=== PATIENT | female | born 1945 | race Caucasian/White ===

== ENCOUNTER 2023-08-25 12:54 | Inpatient (IN) | payer OTHER, SELFPAY ==
[2023-08-24] VITALS (8 sets, daily range): BP systolic 131–150; BP diastolic 80–112; BMI 33.2; BMI 32.1
--- NOTE | 2023-08-24 10:51 | ED.GENMED ---
History of Present Illness
<Carolina Chen PA-C - Last Filed: 08/24/23 15:36>
General
Chief Complaint: Fall
Source: patient
Time Seen by Provider: 08/24/23 10:50
History of Present Illness
History of Present Illness:
77-year-old female with a past medical history of hypertension, hyperlipidemia, hypothyroidism presenting emergency department today with left groin pain following a fall that occurred this morning. Patient reports that she was walking to take her
trash out of her apartment and tossed the trash over the wall into the trash can when she lost her balance and fell forward. Patient reports that she was on the ground for 10 minutes when her friend walked by on the way to [facility] and saw her on the
ground and called EMS. Patient was able to roll but not able to get up on her own. Patient is unable to bear any weight. Patient reports that she feels like when she fell, 'the bones fell out of place'. She denies any head trauma, denies neck
pain, chest wall pain, abdominal pain, shoulder pain. Patient denies any dizziness, lightheadedness, palpitations, chest pain, shortness of breath preceding the fall. She takes 1 baby aspirin daily but does not take any anticoagulants.
Past History
<Carolina Chen PA-C - Last Filed: 08/24/23 15:36>
Past History
ED Past Medical History: Asthma, HTN, Hypercholesterolemia, Hypothyroidism and Other (Arthritis is)
ED Past Surgical History: Cholecystectomy, Gynecological and Orthopedic (Bilateral knee replacements)
Social History
Tobacco: Non-smoker
Alcohol: Occasional
Drug: None
Personal:
Living: alone
Employment: Employed
Review of Systems
<Carolina Chen PA-C - Last Filed: 08/24/23 15:36>
Review of Systems
All Other Systems: ROS reviewed and negative except as documented in HPI and ROS
Phy Exam
<Carolina Chen PA-C - Last Filed: 08/24/23 15:36>
Physical Exam
Physical Exam:
General: Patient is well appearing and in no acute distress
Skin: Warm and dry, no rashes or lesions, no areas of ecchymosis
Head: Normocephalic, atraumatic, no palpable hematomas
Cardiac: Regular rate and rhythm, no murmurs. No tenderness palpation of the external chest wall.
Peripheral vascular: Patient has 2+ dorsalis pedis and posterior tibial pulses bilaterally.
Pulm: Normal respiratory effort, no wheezes, rales, or rhonchi
Abdomen: No abdominal tenderness, no signs of trauma, no ecchymosis.
Musculoskeletal: Patient unable to bear weight. Patient has no obvious deformity of the lower extremities. Patient has no tenderness palpation of the hip joint. Patient has moderate pain in the groin with any so movements. Patient has full range
of motion of bilateral upper extremities with 5 out of 5 strength, no pain with range of motion.
Neuro: Patient is awake and alert x 3. Cranial nerves II through XII intact.
Course
<Carolina Chen PA-C - Last Filed: 08/24/23 15:36>
Orders/Labs/Results
Orders:
Orders
08/24/23 11:11
CR Hip - LT w/wo Pel 2-3 Vw* Urgent
Comment:
Reason For Exam: left hip pain following fall
Include a pelvis x-ray?: Yes
08/24/23 11:17
Acetaminophen [Tylenol] 650 mg PO NOW STA
08/24/23 12:24
IV Insert/Care/Rem.- Treatment PRN
08/24/23 13:12
Complete Blood Count/With Diff Urgent
Comprehensive Metabolic Panel Urgent
08/24/23 13:25
Ketorolac [Toradol] 15 mg IV NOW STA
08/24/23 14:04
Admit/Transfer Patient As Directed
Co-Sign Provider:
Level of Care: Observation services
Assign to:: Medical/Surgical
Physician / Group: Hospitalist
Diagnosis: Left pubic rami fracture
Reason for Hospitalization: Left pubic rami fracture w/ ambulatory dysfunction
08/24/23 14:06
Code Status As Directed
Resuscitation Status: Full Code
08/24/23 14:27
DNR Bracelet Application ONCE
08/24/23 Dinner
Regular
At Your Request: Full Participation
Abnormal Lab Results
08/24/23
13:12
MCH 32.3 H pg
(27.0-31.0)
Abs Immat Gran (auto) 0.1 H 10^3/uL
(0-0.05)
Absolute Neuts (auto) 8.6 H 10^3/uL
(1.4-6.5)
Absolute Lymphs (auto) 1.0 L 10^3/uL
(1.2-3.4)
Absolute Monos (auto) 0.8 H 10^3/uL
(0.1-0.6)
Immature Gran % 0.6 H %
(0-0.5)
Neutrophils % 81.1 H %
(42.2-75.2)
Lymphocytes % 9.6 L %
(20.5-51.1)
BUN 18 H mg/dl
(7-17)
Calcium 10.5 H mg/dl
(8.4-10.2)
08/24/23 13:12
08/24/23 13:12
Vital Signs
Initial and Last Documented VS:
Initial Vital Signs
BP
131/87
08/24/23 10:48
Last Documented Vital Signs
Temp Pulse Resp BP Pulse Ox
98.6 F 83 15 150/80 94
08/24/23 10:54 08/24/23 12:00 08/24/23 11:00 08/24/23 15:00 08/24/23 15:00
<Fahad Hutchinson MD - Last Filed: 08/24/23 13:13>
Orders/Labs/Results
Orders:
Orders
08/24/23 11:11
CR Hip - LT w/wo Pel 2-3 Vw* Urgent
Comment:
Reason For Exam: left hip pain following fall
Include a pelvis x-ray?: Yes
08/24/23 11:17
Acetaminophen [Tylenol] 650 mg PO NOW STA
08/24/23 12:24
IV Insert/Care/Rem.- Treatment PRN
08/24/23 13:12
Complete Blood Count/With Diff Urgent
Comprehensive Metabolic Panel Urgent
08/24/23 13:25
Ketorolac [Toradol] 15 mg IV NOW STA
08/24/23 14:04
Admit/Transfer Patient As Directed
Co-Sign Provider:
Level of Care: Observation services
Assign to:: Medical/Surgical
Physician / Group: Hospitalist
Diagnosis: Left pubic rami fracture
Reason for Hospitalization: Left pubic rami fracture w/ ambulatory dysfunction
08/24/23 14:06
Code Status As Directed
Resuscitation Status: Full Code
08/24/23 14:27
DNR Bracelet Application ONCE
08/24/23 Dinner
Regular
At Your Request: Full Participation
Abnormal Lab Results
08/24/23
13:12
MCH 32.3 H pg
(27.0-31.0)
Abs Immat Gran (auto) 0.1 H 10^3/uL
(0-0.05)
Absolute Neuts (auto) 8.6 H 10^3/uL
(1.4-6.5)
Absolute Lymphs (auto) 1.0 L 10^3/uL
(1.2-3.4)
Absolute Monos (auto) 0.8 H 10^3/uL
(0.1-0.6)
Immature Gran % 0.6 H %
(0-0.5)
Neutrophils % 81.1 H %
(42.2-75.2)
Lymphocytes % 9.6 L %
(20.5-51.1)
BUN 18 H mg/dl
(7-17)
Calcium 10.5 H mg/dl
(8.4-10.2)
08/24/23 13:12
08/24/23 13:12
Vital Signs
Initial and Last Documented VS:
Initial Vital Signs
BP
131/87
08/24/23 10:48
Last Documented Vital Signs
Temp Pulse Resp BP Pulse Ox
98.6 F 83 15 150/80 94
08/24/23 10:54 08/24/23 12:00 08/24/23 11:00 08/24/23 15:00 08/24/23 15:00
<Carolina Chen PA-C - Last Filed: 08/24/23 15:36>
MDM/Problems Addressed
Differential Diagnosis Includes:
Differentials include pelvic fracture, hip fracture, hip dislocation, musculoskeletal sprain/strain
MDM/Problems Addressed:
Left groin pain
Chronic conditions affecting care: HTN and Other (hyperlipidemia, hypothyroidism)
Acute Exacerbation and/or Progression of Chronic Illness: HTN
<Carolina Chen PA-C - Last Filed: 08/24/23 15:36>
*Radiology
Radiology exam reviewed: preliminary read by ED provider (left pubic ramus fracture)
*Pulse Oximetry
Patient hypoxic: no
*Critical Care Note
Total Time (30-74mins, 75-104mins- exclusive of procedures): Not Applicable
Data Reviewed
Review of Other/Old Records Reveals: Records (Reviewed documentation from 09/18/2021)
Source: patient
<Carolina Chen PA-C - Last Filed: 08/24/23 15:36>
Patient Management
Escalation/DeEscalation of care consider admission/obs:
77-year-old female presenting emergency department with left groin pain following a fall. Patient states that she fell while throwing a large garbage bag over a fence and lost her balance. She was found to have a left, slightly displaced, superior
pubic ramus fracture. Patient was alone at home, has significant pain, and cannot bear weight. Considering concerns for her safety at home and inability bear weight, we will admit her to the hospital for further observation, pain control, PT
evaluation, and Ortho evaluation. Patient accepted by hospitalist for admission.
<Carolina Chen PA-C - Last Filed: 08/24/23 15:36>
Update Note
Update Note:
12:30 pm--updated patient on x-ray results, patient deny any further pain control at this time
ED Attending Note
<Carolina Chen PA-C - Last Filed: 08/24/23 15:36>
-
Portions of this chart may have been created with voice recognition software.� Occasional wrong word or��sound alike� substitutions may have occurred due to the inherent limitations of voice recognition software.
<Fahad Hutchinson MD - Last Filed: 08/24/23 13:13>
ED Attending Note
Patient seen and examined by attending physician: Yes
ED Attending Note:
Patient presents to ED for evaluation secondary to trip and fall while taking out trash can this morning. Patient reports falling forward onto her stomach when she fell. Patient reporting left hip/groin pain, which prevented patient from being
able to stand up. Denies any other injuries from the fall. Denies headache. Denies neck pain. Denies loss of sensation or weakness. Denies back pain. Denies chest pain. Denies abdominal pain. Patient does not take any blood thinning
medications.
Physical Exam
General: mild painful distress, not acutely ill. afebrile
Head: nc/at. eomi
Neck: supple. no meningeal signs.
Abdomen: normal bowel sounds. not tender.
Neuro: alert and oriented. no focal neurological deficits
Skin: no rash
Psychiatric: well kept. interactive and cooperative
Extremities: no edema. no calf tenderness.
History, exam, and x-ray consistent with pelvic fracture. Patient with continued pain despite pain medication, and unable to weight-bear due to pain. As such, patient will be admitted for further evaluation and treatment, including pain
management, PT/OT evaluation, and potential orthopedic consultation as an inpatient.
Discharge Plan
Departure
Patient Disposition: Admit
Date of Disposition: 08/24/23
Time of Disposition: 13:06
Presentation/result/management discussed w/ accepting MD/DO: Hospitalist
Patient with high blood pressure during this ER visit?: Yes
Condition: Fair
Discharge Problem:
Closed fracture of left superior pubic ramus
Interventions
Interventions:
*Risk Screen - Suicide Last Done: 08/24/23 10:57
*General Assessment Last Done: 08/24/23 10:54
*Neglect/Abuse Screening Last Done: 08/24/23 10:57
*ED COVID-19 Vaccine History Last Done: 08/24/23 10:54
ED-Musculoskeletal Assessment Last Done: 08/24/23 10:55
ED- Neurological Assessment Last Done: 08/24/23 10:55
ED-Skin Assessment Last Done: 08/24/23 10:56
[2023-08-24] MEDS: TYLENOL 650 MG PO ×3 (11:27→23:52)
[2023-08-24 13:18] LABS: % Basophils 0.5 % (0-2); % Immature Granulocytes 0.6 % (0-0.5); % Lymphocytes 9.6 % (20.5-51.1); % Monocytes 7.2 % (1.7-9.3); % Neutrophils 81.1 % (42.2-75.2); Absolute Basophils 0.1 10^3/uL (0-0.2); Absolute Eosinophils 0.1 10^3/uL (0-0.7); Absolute Immature Granulocytes 0.1 10^3/uL (0-0.05); Absolute Monocytes 0.8 10^3/uL (0.1-0.6); Absolute Neutrophils 8.6 10^3/uL (1.4-6.5); Hematocrit 40.1 % (37.0-47.0); Hemoglobin 13.9 g/dL (12.0-16.0); Mean Corp Hgb Conc. 34.7 g/dL (33.0-37.0); Mean Corpuscular Hgb 32.3 pg (27.0-31.0); Mean Corpuscular Volume 93.3 fL (81.0-99.0); Mean Platelet Volume 9.5 fL (7.4-10.4); Nucleated Red Blood Cells % 0 %; Platelet Count 221 10^3/uL (130-400); Red Cell Dist. Width 13.4 % (11.5-14.5); White Blood Cell Count 10.6 10^3/uL (4.8-10.8)
[2023-08-24 13:31] LABS: ALT (SGPT) 21 U/L (0-35); AST (SGOT) 24 U/L (14-36); Albumin 4.6 g/dl (3.5-5.0); Alkaline Phosphatase 58 U/L (38-126); Blood Urea Nitrogen 18 mg/dl (7-17); Calcium 10.5 mg/dl (8.4-10.2); Carbon Dioxide 26 mmol/L (22-30); Chloride 105 mmol/L (98-107); Estimated Creatinine Clearance 56 ml/min; Glucose 98 mg/dl (70-99); Potassium 3.9 mmol/L (3.5-5.1); Sodium 137 mmol/L (135-145); Total Bilirubin 0.7 mg/dl (0.2-1.3); Total Protein 6.7 g/dl (6.3-8.2); eGFR > 60.00
[2023-08-24] MEDS: TORADOL 15 MG IV (13:38)
--- NOTE | 2023-08-24 14:28 | HPS.HSE ---
Family Physician
-
Family Physician: Kaylie Boudreaux
Chief Complaint
-
Fall
History of Present Illness
This is a 77-year-old female with past medical history significant for hypothyroidism, hypertension, hyperlipidemia, obesity and osteopenia presenting to the emergency department following a mechanical fall at her apartment.
Patient remember the episode fully. There was no loss of consciousness. There was no seizure-like activity. She denied feeling lightheaded prior to the episode. Patient recalls a mechanical fall where she fell as she was turning around left leg
hide will skidded on the floor and then she fell on ventral surface landing on her stomach. She denied hitting her head. She tries to roll around to her back she noted significant pain on the left side. A bystander that was quickly side and EMS
was called. Patient report being able to see her up. However when she tried to move her legs she felt the discomfort in the left hip. She denied prior mechanical falls. She is not on any blood thinners. She does take 80 mg of aspirin daily.
She had recent cardiac testing including stress testing which was negative.
In emergency department the patient was afebrile, hemodynamically stable and in no acute distress. Labs unremarkable. X-ray of the hip shows a left superior ramus minimally displaced fracture as well as a left inferior ramus nondisplaced fracture.
Medical History
Past Medical History
Past Medical History: Reports HTN, Hypercholesterolemia and Hypothyroidism
Additional Past Medical History:
osteoporosis
osteoarthritis of the cervical, lumbar spine
Past Surgical History: Reports Orthopedic
Social History
Tobacco: Non-smoker
Alcohol: None
Drug: None
Personal: Single
Living: Alone
Employment: Retired
Family History
Family History: Not pertinent
Allergies / Home Medications
Allergies reflects when Allergies were last updated in [employer].
Home Medications with original date entered in [employer]
Allergy/Medication List:
Allergies
Allergy/AdvReac Type Severity Reaction Status Date / Time
morphine Allergy 'severe Verified 10/10/21 13:09
nausea and
constipation'
Home Medications
levothyroxine 75 mcg tablet 75 mcg PO MOTUWETHFRSA 01/16/16
carvedilol 6.25 mg tablet 6.25 mg PO BID 09/21/21
pravastatin 40 mg tablet 80 mg PO DAILY 09/21/21
acetaminophen 325 mg tablet 650 mg PO Q4HPRN PRN mild pain #30 tabs 09/26/21
ferrous sulfate 325 mg (65 mg iron) tablet,delayed release 325 mg PO DAILY ##30 09/26/21
aspirin 81 mg tablet,delayed release 81 mg PO DAILY 08/24/23
cetirizine 10 mg tablet (Zyrtec) 10 mg PO HS 08/24/23
denosumab 60 mg/mL subcutaneous syringe (Prolia) 60 mg SC [id number] 08/24/23
duloxetine 30 mg capsule,delayed release (Cymbalta) 30 mg PO DAILY 08/24/23
meloxicam 15 mg tablet 15 mg PO DAILY 08/24/23
nifedipine 30 mg tablet,extended release 30 mg PO DAILY 08/24/23
Review of Systems
-
History Source: Patient
Constitutional: Reports No Symptoms
EENT: Reports No Symptoms
Respiratory: Reports No Symptoms
Cardiac: Reports No Symptoms
Abdomen/GI: Reports No Symptoms
: Reports No Symptoms
Musculoskeletal: Reports Joint Pain
Skin: Reports No Symptoms
Neurological: Reports No Symptoms
Endocrine: Reports No Symptoms
Hematologic/Lymphatic: Reports No Symptoms
Psych: Reports No Symptoms
Physical Exam
Vital Signs
Vital Signs
Temp Pulse Resp BP Pulse Ox
98.6 F 83 15 135/93 96
08/24/23 10:54 08/24/23 12:00 08/24/23 11:00 08/24/23 12:00 08/24/23 13:30
Physical Exam
General: Well Developed, Well Nourished, No Apparent Distress and Obese
HEENT: NormoCephalic, Anicteric, Moist mucous membranes, Atraumatic, PERRLA and [place] Conjunctivae
Respiratory: Clear
Cardiac: S1/S2 and Regular Rhythm
Breast: Deferred by me
GI: Soft, Non Tender, Non Distended and Normal Bowel Sounds
Rectal: Deferred by Provider
Genito-urinary: Deferred by me
Musculoskeletal: No Clubbing, No Cyanosis, No Edema and Other (normal pedal pulses bilaterally. No limb length asymmetry. No hip swelling, erythema. Mild tenderness to palpation. Pain with hip flexion/adduction)
Skin: Warm
Neuro: AO x 3, No Motor Deficits, Cranial Nerves Intact and No Sensory Deficits
Hematologic/Lymphatic: No Lymphadenopathy
Psych: Calm
Laboratory Results
-
08/24/23 13:12
08/24/23 13:12
Laboratory Results
Total Bilirubin 0.7 mg/dl (0.2-1.3) 08/24/23 13:12
AST 24 U/L (14-36) 08/24/23 13:12
ALT 21 U/L (0-35) 08/24/23 13:12
Alkaline Phosphatase 58 U/L (38-126) 08/24/23 13:12
Data Reviewed
-
Diagnostic Radiology: Image Personally Visualized and interpreted and Report Reviewed by me
Lab Data: Labs Reviewed by me
Old Records: Reviewed
Impression/Plan
-
IMPRESSION:
77 y.o with OA, osteopenia, HTN, HLD and hypothyroidism presents to ED following mechanical fall with left hip pain and found to have left sided superior & inferior rami fractures.
PLAN:
1. Hip Fracture - Traumatic/fragility hip fracture in patient with osteopenia. Type I fracture. No indication for immediate surgery. Patient is hemodynamically stable and in no extremum.
- admit to observation on general med/surg
- d/w ortho, likely no surgery indicated, ok for weight-bearing, ortho to see in am
- pain control with iv toradol prn, oral acetaminophen RTC and tramadol prn (tolerated this in the past)
- DVT PPX with lovenox sq
- continue duloxetine
- PT evaluation, possible STR
2. HTN - stable
- continue nifedipine and carvedilol.
3. Hypothyroid -
- continue levothyroxin 75mg daily
Code Status: DNR.
[2023-08-24] MEDS: TYLENOL PO (16:59)
[2023-08-24] MEDS: LOVENOX 40 MG SC (17:38)
--- NOTE | 2023-08-24 19:32 | CON.ORTHO ---
Consultation
-
Date/Time Consultation Requested: 08/24/2023 @ 16:25
Date/Time Consultation Performed: 08/24/2023 @ 19:00
Requesting Provider: Asim Vargas MD
Performing Provider: Antonio Hernandez PA-C for Dr. Mauro Sánchez
Reason for Consultation: Left Superior and Inferior Pubic Rami Fractures
Consultation - Orthopedics
History
HPI: The patient is a 77-year-old female with a past medical history significant for Hypertension, Hyperlipidemia, Hypothyroidism, and Osteopenia who presented to [facility] Emergency Department after sustaining a mechanical fall this
morning around 10 AM, 08/24/2023.� Patient reports that she was walking to take her trash out of her apartment and tossed the trash over the wall into the trash can, when she unfortunately lost her balance and fell forward to her stomach.� Patient
reports that she was lying on the ground for about 10 minutes when her friend walked by, saw her on the ground, and immediately called EMS.� Patient reports that she was unable to get off the ground under her own power.� She reports that she was
unable to bear any weight.� Patient reports pain at the left hip/groin region.� She denies any pain elsewhere.� Pain is reported a 1 out of 10 at rest lying in bed. She reports increased pain with rolling from side and with weightbearing activities.
Currently, her symptoms are well controlled with with IV Toradol as needed, oral Acetaminophen ATC, and Tramadol PRN. She denies any numbness or tingling in her left lower extremity.� The patient lives alone in an apartment. At baseline, the patient
is fully ambulatory without assistance.� Patient denies any head trauma or loss of consciousness.� She denies any neck pain, chest pain, abdominal pain, or shoulder pain. She denies any dizziness or lightheadedness.� Plain radiographs of the left
hip were obtained in the ED, revealing fractures of the left superior and inferior pubic rami.� Patient takes a baby Aspirin daily but denies any further anticoagulant use.� Due to x-ray findings, and degree of ambulatory dysfunction secondary to
injury, patient has been admitted for further evaluation.� Orthopedic surgery was consulted regarding treatment recommendations.
Past Medical History: Asthma, Hypertension, Hypercholesterolemia, Hypothyroidism, Obesity, Osteopenia, and Osteoarthritis.
Past Surgical History: Cholecystectomy, Gynecological, Bilateral total knee replacements (R TKA [address] Rashid; L TKA 2004 in [place]), Right reverse total shoulder arthroplasty for fracture ([address] Prado).
Family History: Non-contributory.
Social History: Denies tobacco, alcohol, and recreational drug use.� Patient lives alone in an apartment ([facility]).� She is fully ambulatory at baseline.
Review of Systems: 12-point review of systems obtained and negative except those mentioned in the HPI.
Allergies / Home Medications
Allergy/AdvReac Type Severity Reaction Status Date / Time
morphine Allergy 'severe Verified 10/10/21 13:09
nausea and
constipation'
Medication Instructions Recorded
levothyroxine 75 mcg tablet 75 mcg PO MOTUWETHFRSA 01/16/16
carvedilol 6.25 mg tablet 6.25 mg PO BID 09/21/21
pravastatin 40 mg tablet 80 mg PO DAILY 09/21/21
acetaminophen 325 mg tablet 650 mg PO Q4HPRN PRN mild pain #30 09/26/21
tabs
ferrous sulfate 325 mg (65 mg 325 mg PO DAILY ##30 09/26/21
iron) tablet,delayed release
aspirin 81 mg tablet,delayed 81 mg PO DAILY 08/24/23
release
cetirizine 10 mg tablet (Zyrtec) 10 mg PO HS 08/24/23
denosumab 60 mg/mL subcutaneous 60 mg SC [id number] 08/24/23
syringe (Prolia)
duloxetine 30 mg capsule,delayed 30 mg PO DAILY 08/24/23
release (Cymbalta)
meloxicam 15 mg tablet 15 mg PO DAILY 08/24/23
nifedipine 30 mg tablet,extended 30 mg PO DAILY 08/24/23
release
Vital Signs / Lab Results
Temp Pulse Resp BP Pulse Ox
98 F 93 18 150/98 96
08/24/23 16:29 08/24/23 16:29 08/24/23 16:29 08/24/23 16:29 08/24/23 16:29
08/24/23 13:12
08/24/23 13:12
Radiographic Findings:
Plain radiographs of the left hip (2 views), including AP pelvis view, was obtained at [facility] on 08/24/2023 and was made available for my review today.� Findings: There is a slightly displaced overriding fracture of the left superior
pubic ramus.� There is also a fracture of the left inferior pubic ramus, without significant displacement.� No other fractures are identified.� Mild degenerative change of both hip joints, symmetric.� Changes of degenerative disc disease in the
visualized mid to lower lumbar spine.� Impression: Fractures of the left superior and inferior pubic rami.
Physical Examination:
General: Well-developed, well-nourished, in no acute distress.
HEENT: NCAT.� Sclera anicteric.� Normal conversational hearing.
Heart: No JVD.� No lower extremity edema.
Lungs: Nonlabored breathing on room air.
MSK: Focused examination of the left lower extremity does not reveal any obvious deformity. No significant tenderness to palpation over the lateral aspect of her left hip and greater trochanter.� No erythema, warmth, or significant ecchymosis to
this point.� Pain reproduced to the left groin region with internal rotation to 20 degrees, external rotation to 20 degrees, hip flexion to 90 degrees, and hip abduction to 30 degrees.� No significant pain with logroll maneuver.� Patient has
painless range of motion of her left knee, foot, and ankle.� She can perform active dorsiflexion and plantarflexion.� She can wiggle all toes.� Calf is soft and nontender to palpation.� Sensation is intact to light touch.� Patient is neurovascularly
intact distally.
Assessment / Plan
Assessment: 77-year-old female with a minimally displaced fracture of the left superior pubic ramus, as well as a nondisplaced fracture of the left inferior pubic ramus.
Plan:
- Radiographs discussed with Dr. Sánchez.� These fractures are amenable to nonoperative treatment.� Patient may be weightbearing as tolerated to the left lower extremity with use of an assistive device to offload the affected extremity.
- PT/OT.
- Pain control per primary team.� Ice therapy for symptom management.
- Orthopedic surgery will sign off at this time.� Please reengage with any further questions or concerns.� Recommend outpatient follow-up appointment in 4 weeks for radiographic and clinical evaluation.
[2023-08-24] MEDS: SENOKOT PO (20:49)
[2023-08-24] MEDS: COLACE PO (20:49)
[2023-08-24] MEDS: COREG 6.25 MG PO (20:49)
[2023-08-24] MEDS: ZYRTEC 10 MG PO (20:50)
[2023-08-25] MEDS: TYLENOL 650 MG PO ×4 (04:17→15:21)
[2023-08-25] MEDS: SYNTHROID 75 MCG PO (06:24)
[2023-08-25 07:30] VITALS: BP 132/95
[2023-08-25] MEDS: PROCARDIA XL (EXTENDED RELEASE) 30 MG PO (09:17)
[2023-08-25] MEDS: ASPIR LOW (ENTERIC COATED) 81 MG PO (09:17)
[2023-08-25] MEDS: PRAVACHOL 80 MG PO (09:17)
[2023-08-25] MEDS: CYMBALTA DELAYED RELEASE 30 MG PO (09:17)
[2023-08-25] MEDS: COREG 6.25 MG PO ×2 (09:18→19:49)
[2023-08-25] MEDS: FEOSOL 325 MG PO (09:18)
[2023-08-25 09:20] VITALS: BP 152/98; PULSE 94; O2SAT 96
[2023-08-25] MEDS: COLACE PO ×2 (09:23→19:52)
[2023-08-25] MEDS: SENOKOT PO ×2 (09:23→19:52)
--- NOTE | 2023-08-25 12:46 | W.PN.HOSP.TC ---
Today's Communication/Plan
-
see A/P
Assessment / Plan
Assessment / Plan
77-year-old female with past medical history significant for hypothyroidism, hypertension, hyperlipidemia, obesity and osteopenia; presented to the emergency department following a mechanical fall at her apartment.
Patient remembers the episode fully.� There was no loss of consciousness.� There was no seizure-like activity.� She denied feeling lightheaded prior to the episode.�Patient recalled a mechanical fall where she fell as she was turning around and left
leg skidded on the floor and then she fell on ventral surface landing on her stomach.�She denied hitting her head.� She tried to roll around to her back and she noted significant pain on the left side.�A bystander called EMS.
When she tried to move her legs she felt the discomfort in the left hip.� She denied prior mechanical falls.� She is not on any blood thinners.� She does take 80 mg of aspirin daily.� She had recent cardiac testing including stress testing which was
negative.
In emergency department the patient was afebrile, hemodynamically stable and in no acute distress.� Labs unremarkable.� X-ray of the hip shows a left superior ramus minimally displaced fracture as well as a left inferior ramus nondisplaced fracture.�
A/P:
# Mechanical fall with left hip pelvis fracture
XR noted fractures of the left superior and inferior pubic rami.
Fracture likely related to underlying osteopenia given age
Appreciate ortho input, recc nonoperative treatment.�Patient may be weightbearing as tolerated to the left lower extremity with use of an assistive device to offload the affected extremity.
PT/OT recc SNF
Pain control with oral acetaminophen ATC , Toradol prn, tramadol prn (tolerated this in the past), add Lidocaine patch
Outpatient follow-up with ortho in 4 weeks for radiographic and clinical evaluation.
DVT PPX with lovenox sq
continue duloxetine
# Essential HTN - stable
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
# Hypothyroidism
continue levothyroxine 75mg daily
Code Status:� DNR
DVT ppx: Lovenox SQ
Anticipated Discharge: 24 - 48 hours
Subjective/Interval History
-
Date of Service: August 25, 2023
Objective Data
-
Vital Signs:
Vital Signs
Temp Pulse Resp BP Pulse Ox
36.8 C 83 18 132/95 96
08/25/23 07:30 08/25/23 09:17 08/25/23 07:30 08/25/23 09:17 08/25/23 07:30
I&O
08/24/23 08/25/23 08/26/23
06:59 06:59 06:59
Intake Total 480 / 480
Output Total 550 / 550
Balance -70 / -70
Review of Systems
-
Musculoskeletal: Reports Joint Pain (L hip area)
Physical Exam
-
General: Well Developed, Well Nourished, No Apparent Distress, Comfortable and Conversant; Negative Respiratory Distress
HEENT: Normocephalic, Atraumatic, Nose Appears Normal and Ears Appear Normal; Negative Oxygen
Respiratory: Clear to Auscultation and Non Labored Respirations; Negative Accessory Resp Muscle Use
Cardiac: Regular Rhythm and S1/S2
GI: Soft, Nontender, Nondistended and Normal Bowel Sounds
Skin: Warm and Dry
Neuro: Awake, Alert, Oriented and AO x 3
Psych: Calm and Intact Judgement/Insight
Data Reviewed
-
Diagnostic Radiology: Report Reviewed by me
Labs: Labs Reviewed by me
[2023-08-25] MEDS: LIDOCAINE 4% PATCH 1 PATCH TOPICAL (14:14)
[2023-08-25 15:21] VITALS: BP 118/67
--- NOTE | 2023-08-25 17:04 | CM ---
Received notification from attending that patient wants rehab and is selecting [facility]. Will do assessment and obtain information, will make referral.
Plan: Case management will continue to follow and assist with discharge planning. Will need to make SNF referrals.
[2023-08-25] MEDS: LOVENOX 40 MG SC (17:07)
[2023-08-25] MEDS: TYLENOL PO (19:53)
[2023-08-25] MEDS: ZYRTEC 10 MG PO (21:01)
[2023-08-25 23:19] VITALS: BP 139/88
[2023-08-26] MEDS: TYLENOL PO (03:28)
[2023-08-26] MEDS: TYLENOL 650 MG PO ×6 (04:45→23:00)
[2023-08-26] MEDS: SYNTHROID 75 MCG PO (04:46)
[2023-08-26 07:00] VITALS: BP 143/97
[2023-08-26 07:07] LABS: Hematocrit 34.9 % (37.0-47.0); Hemoglobin 12.2 g/dL (12.0-16.0); Mean Corpuscular Volume 94.3 fL (81.0-99.0); Mean Platelet Volume 9.9 fL (7.4-10.4); Platelet Count 180 10^3/uL (130-400); Red Cell Dist. Width 13.4 % (11.5-14.5); White Blood Cell Count 8.1 10^3/uL (4.8-10.8)
[2023-08-26 07:31] LABS: Blood Urea Nitrogen 19 mg/dl (7-17); Calcium 9.3 mg/dl (8.4-10.2); Carbon Dioxide 25 mmol/L (22-30); Chloride 104 mmol/L (98-107); Estimated Creatinine Clearance 62 ml/min; Glucose 111 mg/dl (70-99); Magnesium 2.1 mg/dl (1.6-2.3); Potassium 3.8 mmol/L (3.5-5.1); Sodium 135 mmol/L (135-145); eGFR > 60.00
[2023-08-26] MEDS: CYMBALTA DELAYED RELEASE 30 MG PO (09:05)
[2023-08-26] MEDS: PROCARDIA XL (EXTENDED RELEASE) 30 MG PO (09:06)
[2023-08-26] MEDS: ASPIR LOW (ENTERIC COATED) 81 MG PO (09:06)
[2023-08-26] MEDS: PRAVACHOL 80 MG PO (09:06)
[2023-08-26] MEDS: COLACE 100 MG PO (09:06)
[2023-08-26] MEDS: FEOSOL 325 MG PO (09:06)
[2023-08-26] MEDS: SENOKOT 17.1999999999999993 MG PO (09:06)
[2023-08-26] MEDS: COREG 6.25 MG PO ×2 (09:07→19:54)
[2023-08-26] MEDS: LIDOCAINE 4% PATCH TOPICAL (09:08)
[2023-08-26] MEDS: ULTRAM 50 MG PO (09:11)
[2023-08-26 10:40] VITALS: BP 119/66; BP 127/73; PULSE 95
[2023-08-26 10:48] VITALS: BP 119/66; BP 127/73; PULSE 95
--- NOTE | 2023-08-26 11:34 | W.PN.HOSP.TC ---
Today's Communication/Plan
-
see A/P
Assessment / Plan
Assessment / Plan
77-year-old female with past medical history significant for hypothyroidism, hypertension, hyperlipidemia, obesity and osteopenia; presented to the emergency department following a mechanical fall at her apartment.
Patient remembers the episode fully.� There was no loss of consciousness.� There was no seizure-like activity.� She denied feeling lightheaded prior to the episode.�Patient recalled a mechanical fall where she fell as she was turning around and left
leg skidded on the floor and then she fell on ventral surface landing on her stomach.�She denied hitting her head.� She tried to roll around to her back and she noted significant pain on the left side.�A bystander called EMS.
When she tried to move her legs she felt the discomfort in the left hip.� She denied prior mechanical falls.� She is not on any blood thinners.� She does take 80 mg of aspirin daily.� She had recent cardiac testing including stress testing which was
negative.
In emergency department the patient was afebrile, hemodynamically stable and in no acute distress.� Labs unremarkable.� X-ray of the hip shows a left superior ramus minimally displaced fracture as well as a left inferior ramus nondisplaced fracture.�
A/P:
# Mechanical fall with left hip pelvis fracture
XR noted fractures of the left superior and inferior pubic rami.
Fracture likely related to underlying osteopenia given age
Appreciate ortho input, recc nonoperative treatment.�Patient may be weightbearing as tolerated to the left lower extremity with use of an assistive device to offload the affected extremity.
PT/OT recc SNF
Pain control with oral acetaminophen ATC , Toradol prn, tramadol prn (tolerated this in the past), add Lidocaine patch
Outpatient follow-up with ortho in 4 weeks for radiographic and clinical evaluation.
DVT PPX with Lovenox sq
continue duloxetine
# Essential HTN - stable
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
# Hypothyroidism
continue levothyroxine 75mg daily
Code Status:� DNR
DVT ppx: Lovenox SQ
DW CM, awaiting auth and SNF
Anticipated Discharge: Within 24 hours
Subjective/Interval History
-
Date of Service: August 26, 2023
Objective Data
-
Labs:
Laboratory Results
08/26/23
06:56
WBC 8.1
Hgb 12.2
Hct 34.9 L
Plt Count 180
Sodium 135
Potassium 3.8
Chloride 104
Carbon Dioxide 25
BUN 19 H
Creatinine 0.8
Glucose 111 H
Calcium 9.3
Vital Signs:
Vital Signs
Temp Pulse Resp BP Pulse Ox
36.6 C 94 18 143/97 95
08/26/23 07:00 08/26/23 07:00 08/26/23 07:00 08/26/23 09:07 08/26/23 07:00
I&O
08/25/23 08/26/23 08/27/23
06:59 06:59 06:59
Intake Total 1560 / 1560
Output Total 1350 / 1350
Balance 210 / 210
Review of Systems
-
Musculoskeletal: Reports Joint Pain (L hip area pain has improved )
Physical Exam
-
General: Well Developed, Well Nourished, No Apparent Distress, Comfortable and Conversant; Negative Respiratory Distress
HEENT: Normocephalic, Atraumatic, Nose Appears Normal and Ears Appear Normal; Negative Oxygen
Respiratory: Clear to Auscultation and Non Labored Respirations; Negative Accessory Resp Muscle Use
Cardiac: Regular Rhythm and S1/S2
GI: Soft, Nontender, Nondistended and Normal Bowel Sounds
Skin: Warm and Dry
Neuro: Awake, Alert, Oriented and AO x 3
Psych: Calm and Intact Judgement/Insight
Data Reviewed
-
Diagnostic Radiology: Report Reviewed by me
Labs: Labs Reviewed by me
[2023-08-26 15:00] VITALS: BP 111/82
--- NOTE | 2023-08-26 16:41 | CM ---
Alert awake oriented patient who lives at [facility] she has an elevator to her apartment.She is independent in driving and in all activities of daily living.As per PT OT eval =SNF. She requested referral to [facility]. Referral
placed . Will need auth .
[facility] HX /No SNF hx
Pharmacy [facility]
PCP Dr Boudreaux
PLAN Probable SNF after auth
[2023-08-26] MEDS: LOVENOX 40 MG SC (17:13)
[2023-08-26] MEDS: COLACE PO (19:54)
[2023-08-26] MEDS: SENOKOT PO (19:54)
[2023-08-26] MEDS: ZYRTEC 10 MG PO (19:54)
[2023-08-26 23:28] VITALS: BP 116/75
[2023-08-27] MEDS: TYLENOL PO (04:05)
[2023-08-27] MEDS: SYNTHROID 75 MCG PO (05:15)
[2023-08-27 07:15] VITALS: BP 147/83
[2023-08-27] MEDS: COREG 6.25 MG PO (09:16)
[2023-08-27] MEDS: COLACE PO (09:17)
[2023-08-27] MEDS: TYLENOL 650 MG PO ×3 (09:17→15:57)
[2023-08-27] MEDS: PRAVACHOL 80 MG PO (09:17)
[2023-08-27] MEDS: FEOSOL 325 MG PO (09:17)
[2023-08-27] MEDS: PROCARDIA XL (EXTENDED RELEASE) 30 MG PO (09:17)
[2023-08-27] MEDS: ASPIR LOW (ENTERIC COATED) 81 MG PO (09:17)
[2023-08-27] MEDS: CYMBALTA DELAYED RELEASE 30 MG PO (09:17)
[2023-08-27] MEDS: LIDOCAINE 4% PATCH TOPICAL (09:17)
[2023-08-27] MEDS: SENOKOT PO (09:18)
--- NOTE | 2023-08-27 11:21 | W.PN.HOSP.TC ---
Addendum entered and electronically signed by Ni Muir MD 08/27/23 15:27:
# Likely underlying Osteoporosis given patient is receiving Prolia outpatient
Addendum entered and electronically signed by Ni Muir MD 08/27/23 13:09:
total DC time 35 min
Original Note:
Today's Communication/Plan
-
for SNF today
Assessment / Plan
Assessment / Plan
77-year-old female with past medical history significant for hypothyroidism, hypertension, hyperlipidemia, obesity and osteopenia; presented to the emergency department following a mechanical fall at her apartment.
Patient remembers the episode fully.� There was no loss of consciousness.� There was no seizure-like activity.� She denied feeling lightheaded prior to the episode.�Patient recalled a mechanical fall where she fell as she was turning around and left
leg skidded on the floor and then she fell on ventral surface landing on her stomach.�She denied hitting her head.� She tried to roll around to her back and she noted significant pain on the left side.�A bystander called EMS.
When she tried to move her legs she felt the discomfort in the left hip.� She denied prior mechanical falls.� She is not on any blood thinners.� She does take 80 mg of aspirin daily.� She had recent cardiac testing including stress testing which was
negative.
In emergency department the patient was afebrile, hemodynamically stable and in no acute distress.� Labs unremarkable.� X-ray of the hip shows a left superior ramus minimally displaced fracture as well as a left inferior ramus nondisplaced fracture.�
A/P:
# Mechanical fall with left hip pelvis fracture
XR noted fractures of the left superior and inferior pubic rami.
Fracture likely related to underlying osteopenia given age
Appreciate ortho input, recc nonoperative treatment.�Patient may be weightbearing as tolerated to the left lower extremity with use of an assistive device to offload the affected extremity.
PT/OT recc SNF
Pain control with oral acetaminophen ATC , Toradol prn, tramadol prn (tolerated this in the past), added Lidocaine patch
Outpatient follow-up with ortho in 4 weeks for radiographic and clinical evaluation.
DVT PPX with Lovenox sq
continue duloxetine
# Essential HTN - stable
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
# Hypothyroidism
continue levothyroxine 75mg daily
Code Status:� DNR
DVT ppx: Lovenox SQ
DW CM
Anticipated Discharge: Today
Subjective/Interval History
-
Date of Service: August 27, 2023
Objective Data
-
Vital Signs:
Vital Signs
Temp Pulse Resp BP Pulse Ox
36.9 C 85 18 147/83 93
08/27/23 07:15 08/27/23 09:16 08/27/23 07:15 08/27/23 09:16 08/27/23 10:45
I&O
08/26/23 08/27/23 08/28/23
06:59 06:59 06:59
Intake Total 1560 / 1560 1620 / 1620
Output Total 1350 / 1350 550 / 550
Balance 210 / 210 1070 / 1070
Review of Systems
-
Musculoskeletal: Reports Joint Pain (L hip area pain has improved )
Physical Exam
-
General: Well Developed, Well Nourished, No Apparent Distress, Comfortable and Conversant; Negative Respiratory Distress
HEENT: Normocephalic, Atraumatic, Nose Appears Normal and Ears Appear Normal; Negative Oxygen
Respiratory: Clear to Auscultation and Non Labored Respirations; Negative Accessory Resp Muscle Use
Cardiac: Regular Rhythm and S1/S2
GI: Soft, Nontender, Nondistended and Normal Bowel Sounds
Skin: Warm and Dry
Neuro: Awake, Alert, Oriented and AO x 3
Psych: Calm and Intact Judgement/Insight
Data Reviewed
-
Diagnostic Radiology: Report Reviewed by me
Labs: Labs Reviewed by me
--- NOTE | 2023-08-27 11:45 | CM ---
Addendum entered by Brenda Calderon 08/27/23 11:59:
Ambulance transport confirmed for 3:00 p.m., [facility] and patient made aware. IMM reviewed, signed, placed in patients chart.
Plan: [facility] SNF, 3:00 p.m. ambulance transport.
Original Note:
Patient seen bedside, discussed [facility] can accept patient for SNF. Auth obtained, skilled level 1 for 7 days, next review 09/01, fax to [phone]. Auth number [id number], ambulance auth [id number]. TT sent to [facility] with auth approval,
awaiting transportation time. CM will continue to follow for discharge planning needs.
Plan; SNF to [facility], awaiting transportation time.
[facility]:
Report: [phone]
--- NOTE | 2023-08-27 12:54 | W.DCSUMMARY ---
Discharge Summary
Discharge Data
Date of Admission: 08/25/23
Date of Discharge: 08/27/23
-
Pending Results: No
Hospital Course
Principal Diagnosis:
Mechanical fall with left hip pelvis fracture
Chronic Diagnoses:�
Essential hypertension- stable. Continue nifedipine and carvedilol.�
Hypothyroidism, continue Levothyroxine 75mg daily
Consultations:�
Orthopedic
Procedures:�
None
Clinical course:�
This is a 77-year-old female with past medical history as stated above, who presented with a mechanical fall at her apartment. There was no loss of consciousness, no seizure-like activity, and no lightheadedness prior to the episode.�
Problem 1:
Mechanical fall with left hip pelvis fracture
XR noted fractures of the left superior and inferior pubic rami. Fracture likely related to underlying osteopenia given age.
She was seen by ortho, and was recommended nonoperative treatment.�
She may weight-bear as tolerated to the left lower extremity with use of an assistive device to offload the affected extremity.
She can continue Tylenol for pain control.
She was discharged to SNF per PT FREEDOM bae.
She can follow-up with orthopedic in 4 weeks for radiographic and clinical evaluation.
As for the rest of her medical problems, they were stable during her hospital stay.
Discharge Plan
-
Patient Disposition: [facility]/SNF
Discharge Diagnosis/Procedures: Mechanical fall with left hip pelvis fracture
Condition: Fair
Diet: As tolerated
Activity: As tolerated
Driving Restrictions: Not until seen by your Dr
Activity Restrictions/Additional Instructions:
Outpatient follow-up with ortho in 4 weeks for radiographic and clinical evaluation.
Referrals:
Kaylie Boudreaux CRNP [Family Provider] - in less than 1 week
Mauro Sánchez MD [Active] - (F/U 4 weeks upon discharge. )
Prescriptions:
Continued
levothyroxine 75 MCG tablet
75 mcg PO [id number]
carvedilol 6.25 MG tablet
6.25 mg PO BID
pravastatin 40 MG tablet
80 mg PO DAILY
acetaminophen 325 MG tablet
650 mg PO Q4HPRN PRN (Reason: mild pain) Qty: 30 0RF
ferrous sulfate 325 MG tablet,delayed release (DR/EC)
325 mg PO DAILY Qty: 30 0RF
meloxicam 15 mg Tablet
15 mg PO DAILY
duloxetine [Cymbalta] 30 mg Capsule,Delayed Release(Dr/Ec)
30 mg PO DAILY
cetirizine [Zyrtec] 10 mg Tablet
10 mg PO HS
nifedipine 30 mg Tablet Extended Release
30 mg PO DAILY
aspirin 81 mg Tablet,Delayed Release (Dr/Ec)
81 mg PO DAILY
Prolia 60 mg/mL Syringe
60 mg SC [id number]
Discharge Orders:
Discharge Patient (As Directed); Ordered 08/27/23
Ordered By: Ni Muir
--- NOTE | 2023-08-27 13:10 | PN.CDI ---
CDI
- -
CDI:
Physician Documentation Request
Admit Date: 08/25/23 12:54
Dear Doctor Isadora,
Clinical Indicators:
Patient admitted with mechanical fall with left hip pelvis fracture.
PMH includes osteoporosis.
Home medications include: Denosumab 60 mg/mL subcutaneous syringe (Prolia) 60 mg SC [id number].
3/6 PN, 'XR noted fractures of the left superior and inferior pubic rami. Fracture likely related to underlying osteopenia given age.'
Please clarify the likely etiology of the left superior and inferior pubic rami fractures:
Osteoporosis
Osteopenia only (documentation complete)
Other
Use of terms such as suspected, likely, concern for, or probable (associated with a specific diagnosis that is being evaluated, monitored, or treated as if it exists) are acceptable and can be coded in the inpatient setting, when documented at the
time of discharge.
Thank you,
ANNIA Kraus RN
CDI Specialist
available via tiger text
Please use your independent medical judgment in providing your response.
[2023-08-27 13:49] VITALS: BP 115/69
[2023-08-27 15:18] VITALS: BP 123/75
== END 2023-08-27 16:18 | DRG 544 ==
LOC: 4 EAST ACU 12:54
PROVIDERS: Physician Assistant; ADMITTING PHYSICIAN Internal Medicine; ATTENDING PHYSICIAN Internal Medicine; CONSULT PHYSICIAN Orthopaedic Surgery; EMERGENCY PHYSICIAN Emergency Medicine; FAMILY PHYSICIAN Nurse Practitioner Primary Care
DX: M80.0B2A Age-related osteoporosis with current pathological fracture, left pelvis, initial encounter for fracture (principal); Z66 Do not resuscitate; Z79.82 Long term (current) use of aspirin; E03.9 Hypothyroidism, unspecified; I10 Essential (primary) hypertension; E78.00 Pure hypercholesterolemia, unspecified; E66.9 Obesity, unspecified; Z68.32 Body mass index [BMI] 32.0-32.9, adult
CPT/HCPCS: 73502; 80048; 80053; 83735; 85025; 85027; 96374; 97163; 97167; 97530; 99285

== ENCOUNTER → 2024-06-03 11:59 | Outpatient (REF) | payer OTHER, SELFPAY | LOC: HWRAD 11:59 | PROVIDERS: ATTENDING PHYSICIAN Internal Medicine; FAMILY PHYSICIAN Nurse Practitioner Primary Care | DX: M25.50 Pain in unspecified joint (principal) | CPT/HCPCS: 73130 ==

== ENCOUNTER → 2024-11-04 16:43 | Outpatient (REF) | payer OTHER, SELFPAY ==
[2024-11-04 17:49] LABS: Blood Urea Nitrogen 14 mg/dl (7-17)
== END ==
LOC: REG 16:43
PROVIDERS: ATTENDING PHYSICIAN Otolaryngology; FAMILY PHYSICIAN Nurse Practitioner Primary Care
DX: H90.A22 Sensorineural hearing loss, unilateral, left ear, with restricted hearing on the contralateral side (principal)
CPT/HCPCS: 36415; 82565; 84520

== ENCOUNTER → 2025-01-21 15:13 | Outpatient (REF) | payer OTHER, SELFPAY | LOC: MRI 3T 15:13 | PROVIDERS: ATTENDING PHYSICIAN Otolaryngology; FAMILY PHYSICIAN Nurse Practitioner Primary Care | DX: H90.A22 Sensorineural hearing loss, unilateral, left ear, with restricted hearing on the contralateral side (principal); H93.12 Tinnitus, left ear | CPT/HCPCS: 70553; A9575 ==

== ENCOUNTER → 2025-02-18 11:03 | Outpatient (REF) | payer OTHER, SELFPAY | LOC: RAD 11:03 | PROVIDERS: ATTENDING PHYSICIAN Nurse Practitioner Primary Care; OTHER PHYSICIAN Internal Medicine | DX: E78.01 Familial hypercholesterolemia (principal); I63.9 Cerebral infarction, unspecified | CPT/HCPCS: 70496; 70498; Q9967 ==

== ENCOUNTER → 2025-03-16 12:55 | Outpatient (REF) | payer OTHER, SELFPAY | LOC: RCS 12:55 | PROVIDERS: ATTENDING PHYSICIAN Internal Medicine; FAMILY PHYSICIAN Nurse Practitioner Primary Care | DX: I63.9 Cerebral infarction, unspecified (principal) | CPT/HCPCS: 93307 ==